=== PATIENT | female | born 1950 | race Caucasian/White ===

== ENCOUNTER 2017-04-06 09:51 | Observation (INO) | payer BC ==
--- NOTE | ~2017-04-06 | HP ---
History And Physical [address] [id number] [facility] [place]. [address] NAME: YAJAIRA OLIVO : 54 STATUS : ADM Arden PAT#: [id number] AGE: 66 ADM/REG DATE : 04/06/17 MR#: [id number] REPORT SERV DATE: 04/07/17 DICTATED BY: KITTY HUMPHRIES DATE: 04/07/17 REPORT STATUS : Draft TRANSCRIBED BY: MODVanessa DATE: 04/07/17 DATE OF ADMISSION: 04/06/2017 PRIMARY CARE PROVIDER: Brandan Phan. CHIEF COMPLAINT: Chest pain with typical and atypical features. HISTORY OF PRESENT ILLNESS: A very pleasant 66-year-old white female with no known history of CAD, states that on 04/05/2017, she experienced some chest discomfort and neck pain, but it resolved on its own. She denies any exertional component at that point. No stressful or confrontational event. On 04/06/2017, around 0730 hours after having gotten ready for [employer], she experienced "uncomfortable feeling" indicating across her anterior chest. She did take two aspirin. When further questioned, she describes that chest discomfort as a pressure that also radiated towards her neck. She reports associated diaphoresis and belching. Denies shortness of breath, nausea, or dizziness. She actually drove to [employer], talked to her friend, and drove herself to [facility]. An EKG was performed and found to be abnormal and it was recommended that she come to our emergency room. At its most intense, she rates the chest discomfort as 2/10. At time of interview in the OU, she is pain-free. She states the episode lasted approximately an hour in duration and resolved prior to her arrival. She reports that her EKG here was not reported to her as abnormal. EKG performed at [facility] in [place] is interpreted as "old septal infarct." The patient denies any personal history of myocardial infarction, stroke, DVT, or pulmonary embolus. The patient denies any recent fever or chills, no palpitations, no syncopal episodes. Denies PND or orthopnea. Sleeps on one pillow. PAST MEDICAL HISTORY: 1. Hypertension. 2. Dyslipidemia. 3. AODM. 4. BMI greater than 40. 5. Positive family history for early CAD. SURGICAL HISTORY: . SOCIAL HISTORY: She is with two children. She is employed in an office. She does not have an exercise routine. Denies tobacco, alcohol, or illicits. FAMILY HISTORY: Father with valve and questionable CABG in his 50s, at 73. Brother with AMI in his 60s, at 63. REVIEW OF SYSTEMS: A 14-point review of systems performed, significant for HPI including snores per report with no formal sleep study. Home blood sugars of approximately 150. Home blood pressure of 120/60. Otherwise, a complete review of systems obtained and negative. History And Physical [address] [address] NAME: YAJAIRA OLIVO : 54 STATUS : ADM Arden PAT#: [id number] AGE: 66 ADM/REG DATE : 04/06/17 MR#: [id number] REPORT SERV DATE: 04/07/17 DICTATED BY: KITTY HUMPHRIES DATE: 04/07/17 REPORT STATUS : Draft TRANSCRIBED BY: MODESTO DATE: 04/07/17 ALLERGIES: TO SULFA CAUSES A RASH. HOME MEDICATIONS: Diltiazem CD 300 mg daily, Trulicity 1.5 mg weekly, Lantus insulin 50 units twice daily, losartan/HCTZ 100/25 daily, metformin ER 1000 mg twice daily, Crestor 20 mg nightly. PHYSICAL EXAMINATION: VITAL SIGNS: Bilateral blood pressures on arrival, right 142/63, left 145/65, this morning 150/70, pulse 72, respirations 18, temperature 98.2, O2 saturation 96% on room air. Height 5 feet 3 inches. Weight 234 pounds. BMI 41.5. GENERAL: Cooperative, in no apparent distress. HEENT: Pupils 2 mm, sclera nonicteric. Nares patent. Moist mucous membranes. No xanthelasma. NECK: Trachea midline, no thyromegaly. No JVD. No bruits. LYMPH: No cervical lymphadenopathy. No supraclavicular lymphadenopathy. RESPIRATORY: Unlabored respirations. Breath sounds clear bilaterally to posterior auscultation. No wheezes or rhonchi. CARDIOVASCULAR: Regular rate. No murmur, rub or gallop appreciated. EXTREMITIES: Without edema. Pulses 2+ bilaterally. ABDOMEN: Obese. Soft, nontender, nondistended, normal bowel sounds auscultated throughout. No organomegaly. SKIN: Warm, dry extremities. No pallor, or cyanosis. PSYCHIATRIC: Appropriate affect. Alert, oriented x3. LABORATORY DATA: Troponin 0.06, 0.05, and 0.05. Potassium 4.1, BUN 17, creatinine 0.93, glucose 115, magnesium 2.0. WBC 8.0, hemoglobin 13.1, hematocrit 39.6, platelet count 214,000. EKG, sinus rhythm with LVH. ASSESSMENT AND PLAN: 1. Substernal chest discomfort. The patient has been observed in the CPOU overnight to rule out myocardial infarction with serial enzymes and serial EKGs and held n.p.o. I would proceed with cardiac cath today given BMI greater than 40. The patient will be discharged home if low risk, no ischemia. If anything suggestive of ischemia, Cardiology referral will be initiated. Otherwise, the patient will be asked to follow up with her PCP in one to two weeks with all studies being sent to that office. 2. Hypertension. Monitor blood pressure. Continue home medications as appropriate. 3. Dyslipidemia. Continue statin. 4. Adult-onset diabetes mellitus. Hold metformin. Level 1 sliding scale correction. 5. Flat troponins of 0.06 to 0.05 x3, would proceed with cardiac PET today. 6. BMI greater than 40, recommend diet and exercise routine walking program suggested. RIAZ/MODESTO Kitty History And Physical [address] [address] NAME: YAJAIRA OLIVO : 54 STATUS : ADM Arden PAT#: [id number] AGE: 66 ADM/REG DATE : 04/06/17 MR#: [id number] REPORT SERV DATE: 04/07/17 DICTATED BY: KITTY HUMPHRIES DATE: 04/07/17 REPORT STATUS : Draft TRANSCRIBED BY: MODL DATE: 04/07/17 Sherie, LISA, FUR LINER-BC / [id number] CC: NIYA Smith
[2017-04-06 11:04] LABS: BASOPHILS 0.4 %; BASOPHILS ABSOLUTE 0.03 10/3/uL (0.0-0.16); EOSINOPHILS 1.2 %; HEMATOCRIT 39.6 % (36.0-48.0); HEMOGLOBIN 13.1 g/dL (12.0-16.0); IMMATURE GRANULOCYTES 0.4 %; IMMATURE GRANULOCYTES ABSOLUTE 0.03 10/3/uL (0.0-0.11); LYMPHOCYTES 22.8 %; LYMPHOCYTES ABSOLUTE 1.83 10/3/uL (0.67-4.30); MANUAL DIFF NO %; MEAN CORPUS HGB CONC 33.1 g/dL (32.0-36.0); MEAN CORPUSCULAR HEMOGLOB 26.4 pg (26.0-34.0); MEAN CORPUSCULAR VOLUME 79.7 fL (80-100); MEAN PLATELET VOLUME 9.9 fL (9.2-13.0); MONOCYTES 4.4 %; MONOCYTES ABSOLUTE 0.35 10/3/uL (0.21-1.20); NEUTROPHILS 70.8 %; NEUTROPHILS ABSOLUTE 5.69 10/3/uL (2.02-8.40); PLATELET COUNT 214 10/3/uL (150-400); RBC DISTRIBUTION WIDTH 14.2 % (12.0-16.0); RED CELL COUNT 4.97 10/6/uL (4.0-5.6)
[2017-04-06 11:11] LABS: INTERNATIONAL NORMAL RATI 1.1 UNITS (-); PARTIAL THROMBO TIME 24.6 SEC (22.5-37.2); PROTIME (NOT ORD) 13.6 SEC (12.0-14.5)
[2017-04-06 11:19] LABS: BUN (BLOOD UREA NITROGEN) 17 MG/DL (6-23); CALCIUM, SERUM 9.4 MG/DL (8.5-10.4); CHLORIDE, SERUM 109 MMOL/L (96-112); CO2 (CARBON DIOXIDE) 26 MMOL/L (24-34); CREATININE 0.93 MG/DL (0.55-1.02); GFR AFRICAN AMERICAN 75 ML/MIN (>=60); GFR NON AFRICAN AMERICAN 65 ML/MIN (>=60); GLUCOSE, SERUM 115 MG/DL (60-99); POTASSIUM, SERUM 4.1 MMOL/L (3.5-5.3); SODIUM, SERUM 143 MMOL/L (135-148)
[2017-04-06 11:20] LABS: CHEST PAIN PROFILE TAT 0 Hrs 22 Mins; TROPONIN I 0.06 NG/ML (<0.05)
[2017-04-06] MEDS ORDERED: FORTAMET1000 MG PO (12:31)
[2017-04-06] MEDS ORDERED: LANTUSCART SC (12:31)
[2017-04-06] MEDS ORDERED: TRULICITY1.5 MG/0.5 SQ (12:32)
[2017-04-06] MEDS ORDERED: ASA5GR PO (12:33)
[2017-04-06] MEDS ORDERED: CARDCD300 PO (12:35)
[2017-04-06] MEDS ORDERED: CRESTOR20 MG PO (12:35)
[2017-04-06] MEDS ORDERED: HYZAAR 100/25 T1 TAB PO (12:35)
== END 2017-04-07 15:04 | disposition home or self-care (01) ==
LOC: ER 09:51 → CDU1 12:24
PROVIDERS: Emergency Medicine
DX: R07.2 Precordial pain (principal); I10 Essential (primary) hypertension; E78.5 Hyperlipidemia, unspecified; E11.8 Type 2 diabetes mellitus with unspecified complications; Z82.49 Family history of ischemic heart disease and other diseases of the circulatory system; Z98.890 Other specified postprocedural states; Z88.2 Allergy status to sulfonamides; Z79.4 Long term (current) use of insulin
CPT/HCPCS: 71010; 78492; 80048; 82962; 83735; 84484; 85025; 85610; 85730; 93005; 93017; 99291; A9270-GY; A9555; G0378; J2785